=== PATIENT | male | born 1955 ===

== ENCOUNTER 2025-03-16 01:57 | Outpatient (CLI) | payer OTHER, SELFPAY ==
--- NOTE | 2025-03-16 08:30 | DI.US_ITS ---
APPROVED REPORT EXAM: Comprehensive 2D, Doppler, and color-flow Echocardiogram Patient Location: Out-Patient Try Out Person: Tarsha Molina RDCS (AE) Indications: Unspecified atrial fibrillation Other Information Study Quality: Adequate Conclusion Borderline concentric left ventricular hypertrophy. Ejection fraction visually is 50 to 55%. EF biplane is 47%. There are no segmental wall motion abnormalities Normal right ventricular size and function Mildly dilated left atrium. Normal right atrial size Trileaflet aortic valve with mild regurgitation Normal mitral valve with mild regurgitation Estimated right ventricular systolic pressure is 31 mmHg Ascending aorta measures 4.12 cm Wall motion Left Ventricle The left ventricle is normal size. The left ventricular systolic function is normal. The left ventricular ejection fraction is within the normal range. Borderline concentric left ventricular hypertrophy No segmental wall motion abnormalities There is no ventricular septal defect visualized. LVEF is 47%. Right Ventricle The right ventricle is normal size. The right ventricular systolic function is normal. Atria The left atrium is mildly dilated The right atrium size is normal. The interatrial septum is intact with no evidence for an atrial septal defect. Aortic Valve The aortic valve is normal in structure. Aortic valve is trileaflet. There is no aortic valvular stenosis. Mild aortic regurgitation. Mitral Valve The mitral valve is normal in structure. No evidence of mitral valve stenosis. Mild mitral regurgitation. Tricuspid Valve The tricuspid valve is normal in structure. There is no tricuspid valve stenosis. Trace to mild tricuspid regurgitation. The RVSP is 31.4 mmHg. Pulmonic Valve The pulmonary valve is normal in structure. There is no pulmonic valvular stenosis. Trace pulmonic regurgitation. Great Vessels Aortic root is mildly dilated. The ascending aorta is mildly dilated. Aortic arch is normal in caliber. IVC is normal in size and collapses >50% with inspiration. Pericardium There is no pericardial effusion. 2D Dimensions IVSD d PLAX 1.11 cm M: 0.6-1.2 Ao Root d 4.09 cm M: 3.1 - 3.7 LVPW d PLAX 1.10 cm M: 0.6 - 1.2 Ao Asc Diam d 4.12 cm M: 2.6 - 3.4 LVID d PLAX 5.26 cm M: 4.2 - 5.8 LVDs 4.01 cm M: 2.5 - 4.0 LV EF Teichholz 46.9 % FS 23.64 % LV EDV (Teich) 132.7 mL LV ESV (Teich) 70.5 mL M-Mode TAPSE 2.15 cm (M/F) >1.7 Auto EF LV EDV A4C 160.7 mL LV EDV A2C 187.6 mL LV EDV BP 170.7 mL LV ESV A4C 84.6 mL LV ESV A2C 100.5 mL LV ESV BP 89.8 mL LVEF(%) A4C 47.4 % LVEF(%) A2C 46.4 % LVEF(%) BP 47.4 % LV SV A4C 76.1 ml LV SV A2C 87.1 ml LV SV BP 80.9 ml LV CO A4C 3.6 L/min LV CO A2C 4.2 L/min LV CO BP 3.9 L/min HR A4C 47.00 BPM HR A2C 47.94 BPM LV EDV Index (BP) LV Strain Long Pk Overal Avg (s) 17.17 LV Diastology MV E' medial 0.051 (>0.07 m/s) MV E Vmax 0.49 (0.4-1.3 m/s) MV E/E' MED 9.50 (<14) MV A Vmax 0.45 (0.4-1.3 m/s) MV E' lateral 0.102 (>0.1 m/s) E/A Ratio 1.1 MV E/E' LAT 4.77 (<14) MV E' Average 0.077 m/s MV E/E'(average) 6.35 Aortic Valve AoV Vmax 1.15 m/s LVOT Vmax 0.88 m/s AoV Peak Grad 42.5 mmHg LVOT Peak Grad 3.1 mmHg AoV Area (Vmax) 2.64 cm2 LVOT VTI 0.232 m AoV VTI 0.327 m LVOT Mean Grad 1.6 mmHg AoV Mean Juan. 0.83 m/s LVOT SV 80.08 mL AoV Mean Grad 3.1 mmHg LVOT Diam s 2.05 cm AoV Area (VTI) 2.45 cm2 AV Regurg Peak Gr. 5.32 mmHg Velocity Ratio 0.77 AR Decel [place] 1.9m/sec2 AR DT 2359 msec AR PHT 684 msec AR Vmax 4.46 m/s Mitral Valve MV DT 448 (160-240 msec) MR Vmax 6.14 m/s MR VTI 2.767 m MR Peak Grad 150.7 mmHg MR Mean Grad 104.0 mmHg Pulmonary Valve PV Vmax 1.07 (0.5-1.5 m/s) RVOT Vmax 0.45 m/s PV Peak Grad 4.6 mmHg RVOT Peak Gr. 0.8 mmHg PV Mean Juan 0.84 m/s RVOT VTI 0.127 m PV Mean Grad 3.1 mmHg RVOT Mean Gr. 0.6 mmHg Tricuspid Valve RA Pressure 3.00 mmHg TR Vmax 2.67 m/s TV S' 0.12 m/s TR Peak Grad 28.4 mmHg RVSP (TR) 31.4 mmHg
== END 2025-03-16 02:17 ==
PROVIDERS: PCP Internal Medicine; Visit Provider Internal Medicine Interventional Cardiology
DX: I48.91 Unspecified atrial fibrillation (principal)
CPT/HCPCS: 93306

== ENCOUNTER 2025-04-22 08:53 | Outpatient (CLI) | payer OTHER, SELFPAY ==
[2025-04-22 09:44] LABS: HCT 43.5 % (40.0-50.0); HGB 14.6 g/dL (13.5-17.5); MCH 33.0 pg (27.0-33.0); MCHC 33.6 % (32.0-36.0); MCV 98 fL (80-95); MPV 10.6 fL (8.0-11.0); Platelet Count 210 10^3/uL (130-400); RBC 4.42 10^6/uL (4.36-5.78); RDW 12.4 % (11.8-14.1); RDW-SD 44.9 fL; WBC 7.21 10^3/uL (4.4-10.8)
[2025-04-22 10:25] LABS: ALT 39 U/L (16-63); AST 28 U/L (15-37); Albumin 4.3 g/dL (3.4-5.0); Alkaline Phosphatase 67 U/L (46-116); Anion Gap 5.7 mmol/L (3-11); BUN 20 mg/dL (7-18); Bilirubin, Total 0.8 mg/dL (0.2-1.0); CO2 30.3 mmol/L (21.0-32.0); Calcium 9.2 mg/dL (8.5-10.1); Calculated LDL 96 mg/dL (<100); Chloride 104 mmol/L (98-107); Cholesterol 176 mg/dL (<200); Estimated GFR 96.40 (mL/min/1.73m2); Glucose 97 mg/dL (74-106); HDL Cholesterol 66 mg/dL (>or=40); Magnesium 2.2 mg/dL (1.8-2.4); Potassium 4.9 mmol/L (3.5-5.1); Sodium 140 mmol/L (136-145); Total Protein 7.8 g/dL (6.4-8.2); Triglyceride 70 mg/dL (<150)
[2025-04-22 18:53] LABS: PSA, Screening 1.0 ng/mL (<=4.5)
== END 2025-04-22 08:54 | disposition home or self-care (01) ==
PROVIDERS: PCP Internal Medicine; Visit Provider Internal Medicine
DX: E78.5 Hyperlipidemia, unspecified (principal); Z12.5 Encounter for screening for malignant neoplasm of prostate; I10 Essential (primary) hypertension
CPT/HCPCS: 36415; 80053; 80061; 84153; 85027; 83735